=== PATIENT | female | born 2000 | race African-American/Black ===

== ENCOUNTER 2021-11-12 17:12 | Emergency (ER) | payer MEDICAID ==
[~2021-11-12] VITALS: Ht 157.5 cm; Wt 72.0 kg
[2021-11-12 21:49] LABS: CLARITY URINE CLOUDY (CLEAR); COLOR URINE DARK YELLOW (YELLOW); KETONES URINE 1+ (NEGATIVE); LEUKOCYTE ESTERASE URINE 2+ (NEGATIVE); NITRITE URINE NEGATIVE (NEGATIVE); OCCULT BLOOD URINE NEGATIVE (NEGATIVE); PROTEIN URINE 1+ (NEGATIVE); SPECIFIC GRAVITY URINE 1.036 (1.005-1.030)
[2021-11-13] MEDS ORDERED: CEFTRIAXONE SODIUM 500 MG/VIAL IM ONE (00:45)
[2021-11-13] MEDS ORDERED: AZITHROMYCIN 500 MG TABLET PO ONE (00:45)
[2021-11-13] MEDS ORDERED: CEPH500T MT (02:09)
[2021-11-13 02:25] VITALS: BP 135/76
[2021-11-15 08:10] LABS: NEISSERIA GONORRHOEAE NAA Negative (Negative)
== END 2021-11-13 03:03 | disposition home or self-care (01) ==
LOC: ER 17:12
DX: O26.893 Other specified pregnancy related conditions, third trimester (principal); O23.43 Unspecified infection of urinary tract in pregnancy, third trimester; N39.0 Urinary tract infection, site not specified; R10.9 Unspecified abdominal pain; I10 Essential (primary) hypertension; E11.9 Type 2 diabetes mellitus without complications; Z3A.29 29 weeks gestation of pregnancy; Z20.2 Contact with and (suspected) exposure to infections with a predominantly sexual mode of transmission; Z11.3 Encounter for screening for infections with a predominantly sexual mode of transmission
CPT/HCPCS: 76805; 81003; 87086; 87491; 87591; 96372; 99284; J0696